=== PATIENT | female | born 1990 | race Caucasian/White ===

== ENCOUNTER 2020-09-23 16:22 | Emergency (ER) | payer BC, SELFPAY ==
--- NOTE | ~2020-09-23 | XR_ITS ---
EXAMINATION: XR abdomen/kub 1V DATE: 09/23/2020 17:14 INDICATION: Renal stones presenting with one day of right flank pain. TECHNIQUE: A supine view of the abdomen on 2 radiographs was obtained. COMPARISON: None. FINDINGS: There appear to be 3 1-2 mm calcifications project over the lower pole of the left kidney suspicious for renal stones. No stones project over the region of the right kidney. There are few small round ca lcifications in the pelvis, one measuring 2 and 3 mm projects near the region of the right ureteroves icular junction. The long axis of the calcification over oriented orthogonal to the expected axis of the ureter which would be atypical for a ureteral stone. 2 additional calcifications measuring 1 mm a nd 4-5 mm in diameter project near the expected location of the left ureterovesicular junction. Final ly there is a 1 mm calcific calcification projecting over the region of the prostate. IMPRESSION: 1. 3 1-2 mm calcification project over the lower pole of the left kidney suspicious for nephrolithias is. 2. A few small round calcifications in the pelvis most likely phleboliths however at least 3 of which are in the regions of the left and right ureterovesicular junction and additional renal stones canno t be excluded. If clinically indicated CT could be obtained for more definitive determination. Reviewed, dictated and finalized at location . [employer] IMPRESSION: 1. 3 1-2 mm calcification project over the lower pole of the left kidney suspic ious for nephrolithiasis. 2. A few small round calcifications in the pelvis most likely phleboliths howev er at least 3 of which are in the regions of the left and right ureterovesicula r junction and additional renal stones cannot be excluded. If clinically indica gladys CT could be obtained for more definitive determination.
--- NOTE | 2020-09-23 16:25 | ED.GENADULT ---
HPI - General Adult General Chief complaint: Urogenital-Female Stated complaint: UTI or possible kidney stone Time Seen by Provider: 09/23/20 16:45 Source: patient Mode of arrival: ambulatory Limitations: no limitations History of Present Illness HPI narrative: 30-year-old female patient presents to the [facility] with complaints of urinary symptoms that started this morning. Patient states she has had some dull right flank pain for the past month. Patient states that she did mention it to her finance executive when she followed up with him about a month ago and they did do a urine test and at that time it was negative. Patient states she has had kidney stones before. Patient states that the right flank pain is actually better today but noticed blood when she would urinate in extreme pain when she would try and urinate as well. Patient states when she does urinate it is very little. Denies any fevers, body aches or chills. Related Data Home Medications Medication Instructions Recorded Confirmed BuSpar 1 tablet PO BID 09/23/20 09/23/20 galcanezumab-gnlm [Emgality Pen] 120 mg SUBCUT ONCE 09/23/20 09/23/20 hyoscyamine sulfate [Hyoscyamine 0.125 mg PO QID 09/23/20 09/23/20 Compound] mesalamine [Lialda] 2.4 g PO DAILY 09/23/20 09/23/20 omeprazole 20 mg PO DAILY 09/23/20 09/23/20 Allergies Allergy/AdvReac Type Severity Reaction Status Date / Time No Known Allergies Allergy Verified 07/14/16 15:56 Review of Systems Review of Systems: Narrative: CONSTITUTIONAL: Denies fever, chills, or sweats. EYES: Denies visual changes, redness, or discharge. ENT: Denies rhinorrhea, congestion, sore throat, or otalgia. CARDIOVASCULAR: Denies chest pain, palpitations, or edema. RESPIRATORY: Denies cough or dyspnea. GASTROINTESTINAL: Denies abdominal pain, nausea, vomiting, or diarrhea. GENITOURINARY: Positive dysuria with hematuria. Positive right flank pain x1 month SKIN: Denies rash or itching. MUSCULOSKELETAL: Denies back pain, joint pain, or myalgia. NEUROLOGIC: Denies headache, numbness, or weakness. PSYCHIATRIC: Denies anxiety or depression. [facility] Past Medical History Medical History (Updated 09/23/20 @ 18:15 by BARB Li) Kidney stones Migraines Ulcerative colitis Surgical History Surgical History (Updated 09/23/20 @ 16:49 by BARB Li) Delivery by section Comments At the time of my signature I agree with nursing past medical history, surgical, social, and family history. There is no relevant family history pertinent to the presenting complaint. Exam Narrative: Exam Narrative: GENERAL: Well-appearing, well-nourished, and in no acute distress. HEAD: Normocephalic, atraumatic. EYES: PERRLA and EOMI. ENT: Nares clear, no rhinorrhea or epistaxis. Mucous membranes moist. NECK: Supple. No lymphadenopathy CHEST: Clear to auscultation. No respiratory distress. HEART: Regular rate and rhythm. No murmur heard. Normal peripheral pulses. ABDOMEN: Soft, flat, nondistended. No guarding, rebound tenderness, or rigid. No pulsatilla masses. Bowel sounds present in all four quadrants. No organomegaly. Negative Ambrosio?s sign. No periumbicial tenderness. No Supra public tenderness or distension. Good femoral pulses bilaterally. No hernia noted. No scars or surface trauma. Patient has mild CVA tenderness on the right side. Patient does have a little bit of tenderness to the right lower quadrant on palpation into the pelvis. EXTREMITIES: Normal range of motion. No edema. SKIN: Warm, dry, no rash. NEURO: No focal deficits. Alert and oriented x3. Course Reevaluation(s) Reevaluation #1: Reevaluated patient after her KUB had resulted. KUB does show as of kidney stones. Discussed with patient the fact that she does not have any severe pain at this time and her pain is tolerable and the fact that she is not running fevers or has evidence of infection is reassuring. Offered to send patient to the ER for furthe
[2020-09-23 16:30] VITALS: BP 121/81; PULSE 91; RESP 18; TEMP 36.8; O2SAT 100
== END 2020-09-23 18:19 | disposition home or self-care (01) ==
PROVIDERS: Emergency Provider Nurse Practitioner Family; PCP Family Medicine
DX: N20.0 Calculus of kidney (principal)
CPT/HCPCS: 74018; 81003; 81025; 87086; 99203; G0463

== ENCOUNTER 2021-04-23 18:39 | Emergency (ER) | payer BC, SELFPAY ==
[2021-04-23 18:43] VITALS: BP 120/74; PULSE 79; RESP 16; TEMP 37.1; O2SAT 99
--- NOTE | 2021-04-23 18:47 | ED.URI ---
HPI - URI/Sore Throat General Chief Complaint: Upper Respiratory Infection Stated Complaint: sore throat Time Seen by Provider: 04/23/21 18:51 Source: patient and RN notes reviewed Mode of arrival: ambulatory Limitations: no limitations History of Present Illness HPI Narrative: 31-year-old female presents with concern for 3-day history of sore throat, reports seeing white spots on her throat today. She reports body aches that started today. She denies fever, chills, sweats, nasal congestion, rhinorrhea, cough, shortness of breath. Denies known sick contacts. [place]. MD elicited complaint: sore throat Related Data Home Medications Medication Instructions Recorded Confirmed mesalamine [Lialda] 2.4 g PO DAILY 09/23/20 04/23/21 omeprazole 20 mg PO DAILY 09/23/20 04/23/21 bupropion HCl 75 mg PO DAILY 04/23/21 04/23/21 buspirone 5 mg PO DAILY 04/23/21 04/23/21 Allergies Allergy/AdvReac Type Severity Reaction Status Date / Time No Known Allergies Allergy Verified 07/14/16 15:56 Review of Systems Review of Systems: Narrative: CONSTITUTIONAL: Denies malaise, chills, sweats, or fever. EYES: Denies visual changes, redness, or discharge. ENT: Denies rhinorrhea, congestion, sinus pain, otalgia. Reports sore throat. CARDIOVASCULAR: Denies chest pain, palpitations, or edema. RESPIRATORY: Denies cough or dyspnea. GASTROINTESTINAL: Denies abdominal pain, nausea, vomiting, diarrhea SKIN: Denies rash or itching. MUSCULOSKELETAL: Reports myalgia. NEUROLOGIC: Denies headache. All systems reviewed & are unremarkable except as noted in HPI and below PMFSH Past Medical History Medical History (Updated 04/23/21 @ 19:00 by Bebe Alves NP) Kidney stones Migraines Ulcerative colitis Surgical History Surgical History (Updated 09/23/20 @ 16:49 by BARB Li) Delivery by section Social History Social History Gender identity (if verbalized by the patient): Female Comments At time of signature, agree with nursing past medical, surgical, social and family history. There is no relevant family history pertinent to the presenting complaint Exam Narrative: Exam Narrative: GENERAL: Well-appearing, well-nourished, and in no acute distress. HEAD: Normocephalic EYES: PERRLA, conjunctivae clear ENT: Nares clear. Mucous membranes moist. TM pearly mcgraw with dull light reflex bilaterally; no tragal tenderness. Oropharynx erythematous without lesions. Tonsils enlarged and with exudate, no drooling, no hoarseness, no trismus, uvula midline. NECK: Supple. No lymphadenopathy CHEST: Clear to auscultation, breath sounds equal. No wheezing, rhonchi, rales, or stridor. No respiratory distress, speaks in full sentences. HEART: Regular rate and rhythm. No murmur heard. SKIN: Warm, dry, no rash. NEURO: Alert and oriented x3. PSYCH: Normal mood and affect Course Course Emergency Course: Patient is aware of diagnosis, understands and agrees to treatment plan. Anticipatory guidance given. Patient agrees to follow-up as directed and is aware of reasons to seek care at the emergency department. Portions of this record may have been created with voice recognition software Vital Signs Vital signs: Vital Signs Temperature 98.7 F 04/23/21 18:43 Pulse Rate 79 04/23/21 18:43 Respiratory Rate 16 04/23/21 18:43 Blood Pressure 120/74 04/23/21 18:43 Pulse Oximetry 99 04/23/21 18:43 Temperature 98.7 F 04/23/21 18:51 Pulse Rate 79 04/23/21 18:51 Respiratory Rate 16 04/23/21 18:51 Blood Pressure 120/74 04/23/21 18:51 Pulse Oximetry 99 04/23/21 18:51 Reviewed. MDM - URI/Sore Throat MDM Narrative Medical decision making narrative: Differential diagnosis considered: Whitley virus, strep pharyngitis, allergic rhinitis, upper respiratory tract infection, sinusitis, rhinosinusitis, nasopharyngitis. viral ph
[2021-04-23 18:51] VITALS: BP 120/74; PULSE 79; RESP 16; TEMP 37.1; O2SAT 99
== END 2021-04-23 19:04 | disposition home or self-care (01) ==
PROVIDERS: Emergency Provider Nurse Practitioner; PCP Family Medicine
DX: J02.0 Streptococcal pharyngitis (principal)
CPT/HCPCS: 87880; 99213; G0463

== ENCOUNTER 2021-05-10 08:10 | Emergency (ER) | payer BC, SELFPAY ==
[2021-05-10 08:20] VITALS: BP 106/73; PULSE 77; RESP 18; TEMP 36.4; O2SAT 100
--- NOTE | 2021-05-10 09:28 | ED.URI ---
HPI - URI/Sore Throat General Chief Complaint: Upper Respiratory Infection Stated Complaint: strep test Source: patient Mode of arrival: ambulatory Limitations: no limitations History of Present Illness HPI Narrative: Patient is a 31-year-old female who presents with upper respiratory complaints. Patient was seen approximately 2 to 3 weeks ago and treated for strep throat, reports symptoms resolved. Patient reports sore throat, chills, body aches and congestion starting yesterday. She denies fever, denies cough or shortness of breath. She denies known exposure to Covid, patient is unvaccinated. She denies taking [id number] medications prior to arrival for symptom management. MD elicited complaint: sore throat Related Data Home Medications Medication Instructions Recorded Confirmed mesalamine [Lialda] 2.4 g PO DAILY 09/23/20 04/23/21 omeprazole 20 mg PO DAILY 09/23/20 04/23/21 bupropion HCl 75 mg PO DAILY 04/23/21 04/23/21 buspirone 5 mg PO DAILY 04/23/21 04/23/21 Allergies Allergy/AdvReac Type Severity Reaction Status Date / Time No Known Allergies Allergy Verified 07/14/16 15:56 Review of Systems Review of Systems: Narrative: CONSTITUTIONAL: Reports chills and generalized body aches, denies fever EYES: Denies visual changes, redness, or discharge. ENT: Reports congestion, sore throat CARDIOVASCULAR: Denies chest pain, palpitations, or edema. RESPIRATORY: Denies cough or dyspnea. GASTROINTESTINAL: Denies abdominal pain, nausea, vomiting, or diarrhea. GENITOURINARY: Denies dysuria or hematuria. SKIN: Denies rash or itching. MUSCULOSKELETAL: Denies back pain, joint pain, or myalgia. NEUROLOGIC: Denies headache, numbness, dizziness, or weakness. PSYCHIATRIC: Denies anxiety or depression. [facility] Past Medical History Medical History Kidney stones Migraines Ulcerative colitis Surgical History Surgical History Delivery by section Social History Social History Gender identity (if verbalized by the patient): Female Comments At the time of signature, I have reviewed and agree with nursing past medical, surgical, social, and family history unless otherwise noted. Please see nursing chart for further information. There is no relevant family history pertinent to the presenting complaint. Course Vital Signs Vital signs: Vital Signs Temperature 36.4 C L 05/10/21 08:20 Pulse Rate 77 05/10/21 08:20 Respiratory Rate 18 05/10/21 08:20 Blood Pressure 106/73 05/10/21 08:20 Pulse Oximetry 100 05/10/21 08:20 Temperature 36.4 C L 05/10/21 08:20 Pulse Rate 77 05/10/21 08:20 Respiratory Rate 18 05/10/21 08:20 Blood Pressure 106/73 05/10/21 08:20 Pulse Oximetry 100 05/10/21 08:20 MDM - URI/Sore Throat Lab Data Labs: Lab Results 05/10/21 Range/Units 08:32 POC SARS CoV-2 Ag Negative (Negative) Strep Screen Presumptive Negative *(Reference Range: Negative)* Discharge Plan Discharge Clinical Impression: Viral infection Acute tonsillitis Qualifiers: Pharyngitis/tonsillitis etiology: unspecified etiology Qualified Code(s): J03.90 - Acute tonsillitis, unspecified Patient Disposition: Home, Self-Care Condition: Stable Instructions: Antibiotic Form, Tonsillitis (ED), COVID-19 (Coronavirus Disease 2019) (ED) Additional Instructions: Take antibiotics as directed. Take Prednisone as directed. You have also had Covid testing sent at this time. Please quarantine until you receive results. Stay well hydrated, you may also take Tylenol or Ibuprofen for body aches or fever. Follow up with your PCP in 3-5 days if symptoms persist. Prescriptions: New azithromycin 250 mg tablet 250 mg PO DAILY 5 Days Qty: 6 RF: 0 prednison
[2021-05-12 15:56] LABS: SARS-CoV-2 RNA PCR Negative
== END 2021-05-10 09:19 | disposition home or self-care (01) ==
PROVIDERS: Emergency Provider Nurse Practitioner; PCP Family Medicine
DX: B34.9 Viral infection, unspecified (principal); J03.90 Acute tonsillitis, unspecified; Z20.822 Contact with and (suspected) exposure to COVID-19
CPT/HCPCS: 87081; 87426; 87880; 99213; C9803; G0463; U0003; U0005

== ENCOUNTER 2022-08-19 09:14 | Emergency (ER) | payer OTHER, SELFPAY ==
[2022-08-19 09:25] VITALS: BP 112/73; PULSE 79; RESP 16; TEMP 36.5; O2SAT 100
--- NOTE | 2022-08-19 09:29 | ED.FEMALEGU ---
HPI - Female Genitourinary General Chief complaint: Urogenital-Female Stated complaint: Poss UTI/Yeast Time Seen by Provider: 08/19/22 09:29 Source: patient, RN notes reviewed and old records reviewed Mode of arrival: ambulatory Limitations: no limitations History of Present Illness HPI Narrative: 32-year-old female who presents to [facility] care with complaints of 1 month duration of yellow discharge which seems to get worse after she has her menses. Patient reports that she has already had STD testing at her [employer] office and denies any concern for recent exposure.Patient reports that she notes odor to drainage, is itchy, and leaves yellowish thick crusty drainage in her underwear. Patient denies any fevers, chills or sweats, denies any burning with urination or any pain with urination or pain in abdomen. MD elicited complaint: vaginal discharge and genital itching Onset (ago): month(s) (1) Related Data Home Medications Medication Instructions Recorded Confirmed mesalamine 1.2 gram tablet,delayed 2.4 g PO DAILY 09/23/20 08/19/22 release (Lialda) omeprazole 20 mg tablet,delayed 20 mg PO DAILY 09/23/20 08/19/22 release bupropion HCl 75 mg tablet 75 mg PO DAILY 04/23/21 08/19/22 buspirone 5 mg tablet 5 mg PO DAILY 04/23/21 08/19/22 Allergies Allergy/AdvReac Type Severity Reaction Status Date / Time No Known Allergies Allergy Verified 07/14/16 15:56 Review of Systems Review of Systems: CONSTITUTIONAL: Denies fever, chills, or sweats. CARDIOVASCULAR: Denies chest pain, palpitations, or edema. RESPIRATORY: Denies cough or dyspnea. GASTROINTESTINAL: Denies abdominal pain, nausea, vomiting, or diarrhea. GENITOURINARY: Reports no dysuria, frequency, urgency. Denies flank pain or hematuria reports yellowish tinged vaginal discharge odorous SKIN: Denies rash or itching. MUSCULOSKELETAL: Denies back pain or myalgia. Denies CVA tenderness NEUROLOGIC: Denies headache All systems reviewed & are unremarkable except as noted in HPI and below PMFSH Past Medical History Medical History (Updated 08/22/22 @ 08:30 by Azul Shelton NP) Depression Kidney stones Migraines Ulcerative colitis Surgical History Surgical History Delivery by section Social History Social History (Updated 08/22/22 @ 08:30 by Azul Shelton NP) Smoking status: Never smoker Alcohol intake: current Alcohol use details: rare social Substance use: never Substance use type: does not use Living arrangements: with family Gender identity (if verbalized by the patient): Female Comments At time of signature, agree with nursing past medical, surgical, social and family history. There is no relevant family history pertinent to the presenting complaint Exam Narrative: GENERAL: Well-appearing, well-nourished, and in no acute distress. HEAD: Normocephalic, atraumatic. NECK: Supple. CHEST: Clear to auscultation. No respiratory distress. HEART: Regular rate and rhythm. No murmur heard. Normal peripheral pulses. ABDOMEN: Soft, nontender, nondistended, normal active bowel sounds. No CVA tenderness EXTREMITIES: Normal range of motion. No edema. SKIN: Warm, dry, no rash. NEURO: No focal deficits. Alert and oriented x3. : External Female Exam: normal external appearance (redness) Speculum Exam - Vagina: abnormal vaginal discharge malodorous and yellow (thick) Other: culture obtained for BV and sent for analysis Course Course Emergency Course: Patient is aware of diagnosis, understands and agrees to treatment plan.? Anticipatory guidance given.? Patient agrees to follow-up as directed and is aware of reasons to seek care at the emergency department. Portions of this record may have been created with voice recognition software Level of Care: Express Care Visit Vital Signs Vital signs: Vital Signs Temperature 36.5 C 08/19/22 09:25 Pulse Rate 79 08/19/22
== END 2022-08-19 10:17 | disposition home or self-care (01) ==
PROVIDERS: Emergency Provider Registered Nurse; PCP Family Medicine
DX: N76.0 Acute vaginitis (principal); B37.31 Acute candidiasis of vulva and vagina; F32.A Depression, unspecified
CPT/HCPCS: 81003; 87070; 87086; 99213; G0463